=== PATIENT | female | born 1985 | race Asian ===

== ENCOUNTER 2016-10-12 18:50 | Inpatient (IN) | payer BC, OTHER ==
[2016-10-12] MEDS ORDERED: DEXTROSE 5%-LACTATED RINGERS 1,000 ML IV ONE (19:35)
[2016-10-12] MEDS ORDERED: TUBERCULIN PPD 5 TU/0.1ML SYRINGE (IN PATIENT USE ONLY) ID ONE (19:54)
[2016-10-12 20:25] LABS: BASOPHIL 0.8 % (0-2.0); EOSINOPHIL 0.3 % (0-4.5); MCH 26.5 pg (25.7-33.7); MCHC 32.4 g/dl (32.0-36.0); MEAN CELL VOLUME 81.8 fl (80-96); MEAN PLT VOLUME 8.7 fl (7.5-11.1); NEUTROPHILS 71.2 % (42.8-82.8); PLATELET COUNT 279 K/MM3 (134-434); RDW 27.8 % (11.6-15.6); WHITE BLOOD COUNT 10.9 K/mm3 (4.0-10.0)
[2016-10-12] MEDS ORDERED: DEXTROSE 5%-LACTATED RINGERS 1,000 ML IV SCH (20:35)
[2016-10-12 20:38] LABS: INR 0.95 (0.82-1.09); PROTHROMBIN TIME (PATIENT) 10.4 SEC (9.98-11.88)
[2016-10-12 20:43] LABS: ANION GAP 11 (8-16); CALCIUM 8.9 mg/dL (8.5-10.1); CO2 21 mmol/L (21-32); CREATININE 0.5 mg/dL (0.55-1.02); GLUCOSE,RANDOM 108 mg/dL (74-106)
[2016-10-12 21:11] VITALS: BMI 20.9
[2016-10-12 21:14] LABS: HIV 1 & 2 AB NEGATIVE; HIV 1 AGp24 NEGATIVE
[2016-10-12] MEDS ORDERED: BUTORPHANOL TARTRATE 1 MG/ML VIAL IVPB ONE (21:26)
--- NOTE | 2016-10-12 21:36 | HP ---
Past Medical History - Primary Care Physician PCP:: Pennie Martel - Admission Chief Complaint: Spontaneous rupture of memmbranes History of Present Illness: 30 yo EDC 10/13/16 ega 39.6 weeks with c/o srom at 630pm no bleeding or KNIGHT uncomplicated History Source: Patient - Past Medical History ...: 2 ...Para: 0 ...Term: 0 ...: 0 ...Spon : 1 ...Induced : 0 ...Multiple Gestation: 0 ...LMP: 01/08/16 ... Weeks Gestation by Dates: 39.5 ...EDC by Dates: 10/14/16 ...EDC by Sono: 10/13/16 Additional OB History: Missed ab - Past Surgical History Past Surgical History: Yes: None Hx Myomectomy: No Hx Transabdominal Cerclage: No Additional Surgical History: DC x 1 2015 - Smoking History Smoking history: Never smoked Have you smoked in the past 12 months: No - Alcohol/Substance Use Hx Alcohol Use: No History of Substance Use: reports: None - Social History Usual Living Arrangement: Yes: With Spouse History of Recent Travel: No Home Medications - Allergies Allergies/Adverse Reactions: Allergies Allergy/AdvReac Type Severity Reaction Status Date / Time tetracycline Allergy Severe Verified 11/12/15 11:14 ibuprofen [From Motrin] Allergy Intermediate Verified 11/12/15 11:14 - Home Medications Home Medications: Ambulatory Orders Iron 1 tab PO BID 10/12/16 Vitamins (Sjr) - 1 tab PO DAILY 10/12/16 Review of Systems - Review of Systems Constitutional: reports: No Symptoms Eyes: reports: No Symptoms HENT: reports: No Symptoms Neck: reports: No Symptoms Cardiovascular: reports: No Symptoms Respiratory: reports: No Symptoms Gastrointestinal: reports: Abdominal Pain Genitourinary: reports: No Symptoms Breasts: reports: No Symptoms Reported Musculoskeletal: reports: No Symptoms Integumentary: reports: No Symptoms Neurological: reports: No Symptoms Endocrine: reports: No Symptoms Hematology/Lymphatic: reports: No Symptoms Psychiatric: reports: No Symptoms Physical Exam - Maternity Vital Signs: Vital Signs Temperature 98.7 F 10/12/16 21:00 Pulse Rate 114 H 10/12/16 21:00 Respiratory Rate 18 10/12/16 21:00 Blood Pressure 118/73 10/12/16 21:00 O2 Sat by Pulse Oximetry (%) Constitutional: Yes: Well Nourished, No Distress HENT: Yes: WNL Neck: Yes: WNL Cardiovascular: Yes: WNL Lungs: Clear to auscultation Breast(s): Yes: WNL - Abdominal Exam/OB Fundal Height: 40 Number of Fetuses: Single Presentation: Vertex Contractions: Yes Regularity: Irritability Intensity: Mild/Mod Monitor Mode: External Category: I Accelerations: Non-Uniform Decelerations: None - Vaginal Exam/OB Vaginal Bleediing: No Dilatation (cm): 1 Effacement (%): 80 Amniotic Membrane Status: Ruptured Amniotic Fluid: Yes: Clear Presentation: Vertex/Position - Physical Exam Musculoskeletal: Yes: WNL Extremities: Yes: WNL Edema: No Psychiatric: Yes: WNL, Alert, Oriented - Labs Lab Results: CBC, BMP 10/12/16 19:50 10/12/16 19:50 Hemorrhage Risk Assessment - Risk Factors Risk Score: 0 Risk Level: Low Risk Problem List - Problems (1) Spontaneous rupture of membranes Code(s): [id number] - Assessment/Plan IUP at 39.5 weeks SROM GBS neg Hx of DC Plan Admit will observe Stadol as needed
[2016-10-12] MEDS: ELECTROLYTE-148 SOLN 1,000 ML IV SCH (21:50)
[2016-10-12 22:09] LABS: BASOPHIL 0.5 % (0-2.0); EOSINOPHIL 0.3 % (0-4.5); MCH 26.9 pg (25.7-33.7); MCHC 33.1 g/dl (32.0-36.0); MEAN CELL VOLUME 81.3 fl (80-96); MEAN PLT VOLUME 8.5 fl (7.5-11.1); NEUTROPHILS 68.4 % (42.8-82.8); PLATELET COUNT 291 K/MM3 (134-434); RDW 28.8 % (11.6-15.6); WHITE BLOOD COUNT 10.8 K/mm3 (4.0-10.0)
[2016-10-12 22:33] LABS: INR 0.91 (0.82-1.09)
[2016-10-12 22:36] LABS: ACTIVATED PTT 24.9 SECONDS (26.9-34.4)
[2016-10-12 22:50] LABS: ANION GAP 11 (8-16); CALCIUM 8.3 mg/dL (8.5-10.1); CO2 22 mmol/L (21-32); CREATININE 0.5 mg/dL (0.55-1.02); GLUCOSE,RANDOM 96 mg/dL (74-106)
[2016-10-13] MEDS ORDERED: OXYTOCIN 15 UNITS/ LR 250 ML 250 ML IVPB SCH (02:45)
[2016-10-13 07:10] LABS: BASOPHIL 1.1 % (0-2.0); EOSINOPHIL 0.3 % (0-4.5); MCH 26.4 pg (25.7-33.7); MCHC 32.1 g/dl (32.0-36.0); MEAN CELL VOLUME 82.1 fl (80-96); MEAN PLT VOLUME 8.4 fl (7.5-11.1); NEUTROPHILS 64.2 % (42.8-82.8); PLATELET COUNT 232 K/MM3 (134-434); RDW 29.5 % (11.6-15.6); WHITE BLOOD COUNT 11.2 K/mm3 (4.0-10.0)
--- NOTE | 2016-10-13 07:14 | HOSP ---
Subjective - Review of Symptoms Subjective: Called for evaluation of chest pain, dizziness, hallucinations post Stadol At bedside pt. is AA0X3 Physical: BP 121/82, rr 18 02 98% GEN: Nad, resting in bed HEENT: NCAT, PERRL CARD: RRR S1, S2 RESP: CTAB ABD: BSX4, NTD to palpation EXT: - C/C/E EKG A/P.) Chest Pain/Dizziness - Most likely medication reaction Avoid Stadol - Follow Troponin, CMP, UA and CBC - Will continue to follow pt. Physical Examination Vital Signs: Vital Signs Temperature 97.8 F 10/13/16 06:00 Pulse Rate 86 10/13/16 06:00 Respiratory Rate 20 10/13/16 06:00 Blood Pressure 130/69 10/13/16 06:00 O2 Sat by Pulse Oximetry (%)
--- NOTE | 2016-10-13 07:45 | PN ---
Ante-Partal Exam - Subjective Subjective: Pt with chest pain Vital Signs: Vital Signs Temperature 97.8 F 10/13/16 06:00 Pulse Rate 86 10/13/16 06:00 Respiratory Rate 20 10/13/16 06:00 Blood Pressure 130/69 10/13/16 06:00 O2 Sat by Pulse Oximetry (%) Bleeding: No Headache: No Visual changes: No Right upper quadrant pain: No - Contractions Contractions: Yes Regularity: Irregular Intensity: Mild Monitor Mode: External - Exam during Labor Heart Rate: 140 Variability: Moderate Heart Rate Location: [facility] Category: I Monitor Accelerations: Present Monitor Decelerations: None Exam: Vaginal Dilatation (cm): 1 cm Effacement (%): 90 Amniotic Membrane Status: Intact Presentation: Vertex - Intrapartum Hemorrhage Risk Risk Score: 0 Risk Level: Low Risk - Assessment/Plan Assessment/Plan: hospitialist consult called troponin drawn pt desire Section Plan will do CS if patient desire Notify peds and anesthesia
[2016-10-13] MEDS: ELECTROLYTE-148 SOLN 1,000 ML IV SCH (08:05)
[2016-10-13 09:32] LABS: ALBUMIN 2.5 g/dl (3.4-5.0); ANION GAP 10 (8-16); CALCIUM 8.3 mg/dL (8.5-10.1); CO2 22 mmol/L (21-32); GLUCOSE,RANDOM 94 mg/dL (74-106)
[2016-10-13 09:33] LABS: CREATININE 0.5 mg/dL (0.55-1.02); SGOT/AST 14 U/L (15-37); SGPT/ALT 13 U/L (12-78)
[2016-10-13 09:35] LABS: BILIRUBIN,TOTAL 0.2 mg/dL (0.2-1.0)
[2016-10-13 09:36] LABS: ALK PHOS 190 U/L (45-117)
[2016-10-13 09:38] LABS: TROPONIN I < 0.02 ng/ml (0.00-0.05)
[2016-10-13] MEDS ORDERED: ONDANSETRON 4 MG/2 ML VIAL IVPB ONE (11:00)
[2016-10-13 11:37] LABS: URINE APPEARANCE CLEAR; URINE BILIRUBIN NEGATIVE (NEGATIVE); URINE BLOOD 2+ (NEGATIVE); URINE COLOR STRAW; URINE GLUCOSE (UA) NEGATIVE (NEGATIVE); URINE KETONE NEGATIVE (NEGATIVE); URINE LEUK ESTERASE NEGATIVE (NEGATIVE); URINE NITRITE NEGATIVE (NEGATIVE); URINE PROTEIN NEGATIVE (NEGATIVE); URINE UROBILINOGEN NEGATIVE E.U./dl (0.2-1.0)
[2016-10-13 11:40] LABS: URINE RBC 12 /hpf (0-3); URINE WBC 4 /hpf (3-5)
--- NOTE | 2016-10-13 11:54 | HOSP ---
Physical Examination Vital Signs: Vital Signs Temperature 97.9 F 10/13/16 10:00 Pulse Rate 87 10/13/16 11:00 Respiratory Rate 20 10/13/16 11:00 Blood Pressure 120/87 10/13/16 11:00 O2 Sat by Pulse Oximetry (%) Labs: CBC, BMP 10/13/16 06:43 10/13/16 06:43 Hospitalist Encounter Assessment: Labs returned and patient's Troponins were negative . CMP had elevated Alk phos of 190. Patient still complains of a headache and is still anxious. PLAN: -Repeat Troponin with repeat EKG -Tylenol 650mg Q6H PRN for headache -Will follow up on labs Visit type - Emergency Visit Emergency Visit: Yes ED Registration Date: 10/12/16 Care time: The patient presented to the Emergency Department on the above date and was hospitalized for further evaluation of their emergent condition. - New Patient This patient is new to me today: Yes Date on this admission: 10/13/16 - Critical Care Critical Care patient: No
[2016-10-13] MEDS ORDERED: oxyCODONE HCL 5 MG TABLET PO PRN (14:48)
[2016-10-13] MEDS ORDERED: BENZOCAINE 20% 57 GM BOTTLE TP PRN (14:48)
[2016-10-13] MEDS ORDERED: BISACODYL 10 MG SUPP.RECT RC PRN (14:48)
[2016-10-13] MEDS ORDERED: WITCH HAZEL 50% (TUCKS) 40 PAD/JAR PAD TP PRN (14:48)
[2016-10-13] MEDS ORDERED: METHYLERGONOVINE MALEATE 0.2 MG/1 ML AMP IM PRN (14:48)
[2016-10-13] MEDS ORDERED: BENZOCAINE 28 GM HEMORRHOIDAL OINTMENT PR PRN (14:48)
--- NOTE | 2016-10-13 14:48 | PN ---
Ante-Partal Exam - Subjective Vital Signs: Vital Signs Temperature 97.9 F 10/13/16 13:00 Pulse Rate 89 10/13/16 13:00 Respiratory Rate 18 10/13/16 13:00 Blood Pressure 120/71 10/13/16 13:00 O2 Sat by Pulse Oximetry (%) Bleeding: No Headache: No Visual changes: No Right upper quadrant pain: No - Contractions Contractions: No - Exam during Labor Variability: Moderate Category: I Monitor Decelerations: None Exam: Vaginal Amniotic Membrane Status: Ruptured Presentation: Vertex - Assessment/Plan Assessment/Plan: Cat 1 desires elective CS Plan CS
--- NOTE | 2016-10-13 14:56 | OP ---
Operative Note - Note: Operative Date: 10/13/16 Pre-Operative Diagnosis: Elective . spontaneous rupture of membranes. IUp at 39 weeks Operation: Primary Low transverse Section Findings: Live female Post-Operative Diagnosis: Same as Pre-op Surgeon: Pennie Martel Operator Catalyst Concentration: Real Eduardo Anesthesia: Spinal Estimated Blood Loss (mls): 500 Operative Report Dictated: Yes
[2016-10-13] MEDS ORDERED: ONDANSETRON 4 MG/2 ML VIAL IVPB PRN (14:59)
[2016-10-13] MEDS ORDERED: D5W-LR W/ 20 UNITS OXYTOCIN 1,000 ML IV SCH (15:00)
--- NOTE | 2016-10-13 15:01 | OP ---
DATE OF OPERATION: 10/13/2016 PREOPERATIVE DIAGNOSIS: Elective section. POSTOPERATIVE DIAGNOSIS: Live female infant. OPERATION: Primary low-transverse section. SURGEON: Pennie Martel MD HOSPICE HOME HEALTH AIDE: KEESHA Pino ( unavailable) ANESTHESIA: Spinal. ANESTHESIOLOGIST: Moody Alcala DO DESCRIPTION OF PROCEDURE: The patient was taken to the operating room, placed in the supine position, prepped and draped in the usual sterile fashion. A time-out was performed in accordance with hospital regulation. A Pfannenstiel skin incision was made with the scalpel. Cautery was then used to go through the layers of the abdominal wall to the level of the fascia. The fascia was cut in the midline and cautery was then used to open the fascia in a smiling fashion. Wallace was then used to bluntly and sharply dissect the rectus muscle and fascia. The muscle was splint in the midline. The peritoneal cavity was then entered and carried upward and downward. A bladder retractor was then placed. The vesicouterine reflection was then entered. The bladder was bluntly dissected out of the operative field. A scalpel was then used to make a low transverse uterine incision. The incision was carried upward using bandage scissors. No fluid was seen within the uterus. A live female was delivered in OT position. Nose and mouth suction was performed. The shoulders were delivered without difficulty. The cord was clamped and cut. Cord blood was obtained. The placenta was manually extracted from the uterus. The uterus was exteriorized and cleaned with clean lap pads. The uterine incision was then closed using 0 Biosyn suture, the first layer continuous interlocking and the second layer imbricating the first layer. Hemostasis was achieved. The tube and ovaries were normal. The uterus was interiorized. The abdominal cavity was cleaned with clean lap pads. Abdominal sweep done prior to closure. The peritoneum was then closed using 0 Biosyn. The fascia was then closed using 0 Vicryl suture and the muscles approximated in the midline using 0 Biosyn suture. The subcutaneous was closed with interrupted 0 Biosyn. The skin was then closed using 3-0 Biosyn in subcuticular fashion. The wound was washed and dressed. The patient tolerated the procedure well. She was taken to the recovery room in stable condition. Estimated blood loss was 600 mL. Wound classification: Clean, uncontaminated. Sg [id number] MTDD
[2016-10-13 15:32] LABS: VENOUS PH 7.39 (7.32-7.42)
[2016-10-13 15:33] LABS: VENOUS BLOOD GAS HCO3 71.4 meq/L (19-25)
[2016-10-13] MEDS ORDERED: SENNOSIDES/DOCUSATE COMBO (SENNA PLUS) TABLET (UD) PO SCH (22:00)
[2016-10-13] MEDS: ACETAMINOPHEN 325 MG TABLET (FP) PO PRN (23:00)
[2016-10-14] MEDS: ACETAMINOPHEN 325 MG TABLET (FP) PO PRN ×3 (06:20→23:04)
[2016-10-14 08:15] LABS: BASOPHIL 0.5 % (0-2.0); EOSINOPHIL 0.2 % (0-4.5); MCH 26.5 pg (25.7-33.7); MCHC 32.1 g/dl (32.0-36.0); MEAN CELL VOLUME 82.8 fl (80-96); MEAN PLT VOLUME 8.2 fl (7.5-11.1); NEUTROPHILS 75.1 % (42.8-82.8); PLATELET COUNT 250 K/MM3 (134-434); RDW 29.2 % (11.6-15.6); WHITE BLOOD COUNT 12.9 K/mm3 (4.0-10.0)
--- NOTE | 2016-10-14 08:49 | PN ---
Post Progress Note - Subjective Subjective: Pt seen/evaluated and doing well. Having some incisional pain but otherwise feels well. Tolerating clears. Not yet ambulating. Wyatt catheter with clear yellow urine, no void yet. No flatus yet. VB minimal. NO CP/SOB/F/C/KNIGHT. Type of Delivery: Primary C/S Vital Signs: Vital Signs Temperature 98.2 F 10/14/16 06:00 Pulse Rate 94 H 10/14/16 06:00 Respiratory Rate 18 10/14/16 07:00 Blood Pressure 126/80 10/14/16 06:00 O2 Sat by Pulse Oximetry (%) 99 10/13/16 15:52 Uterus: Yes: Fundus Firm, Fundus below umbilicus Incision: Yes: Dressing dry and intact Abdomen/GI: Yes: Abdomen soft, Tender (appropriately tender post op), Tolerating PO (clears). No: Passing flatus Lochia: Yes: Rubra Lochia, amount: Small Extremities: Yes: Calves non-tender. No: Edema Perineum: Yes: Intact Activity: Ambulating - Labs Labs: CBC WBC 12.9 K/mm3 (4.0-10.0) H 10/14/16 07:15 RBC 3.60 M/mm3 (3.60-5.2) 10/14/16 07:15 Hgb 9.5 GM/dL (10.7-15.3) L 10/14/16 07:15 Hct 29.8 % (32.4-45.2) L 10/14/16 07:15 MCV 82.8 fl (80-96) 10/14/16 07:15 MCHC 32.1 g/dl (32.0-36.0) 10/14/16 07:15 RDW 29.2 % (11.6-15.6) H 10/14/16 07:15 Plt Count 250 K/MM3 (134-434) 10/14/16 07:15 MPV 8.2 fl (7.5-11.1) 10/14/16 07:15 Neutrophils % 75.1 % (42.8-82.8) 10/14/16 07:15 Lymphocytes % 20.6 % (8-40) D 10/14/16 07:15 Monocytes % 3.6 % (3.8-10.2) L 10/14/16 07:15 Eosinophils % 0.2 % (0-4.5) 10/14/16 07:15 Basophils % 0.5 % (0-2.0) 10/14/16 07:15 Problem List - Problems (1) delivery delivered Code(s): O82 - ENCOUNTER FOR DELIVERY WITHOUT INDICATION (2) Anemia Code(s): D64.9 - ANEMIA, UNSPECIFIED Assessment/Plan 30 y/o POD#1 s/p elective primary delivery, doing well - AFVSS - Hgb 9.5 this a.m., stable - encourage ambulation, d/c wyatt, advance diet as regular - routine care
[2016-10-14] MEDS ORDERED: DIPHTH,PERTUSS(ACELL),TET 0.5 ML DISP.SYRIN IM ONE (10:00)
--- NOTE | 2016-10-14 11:14 | EKG ---
Test Reason : Blood Pressure : / mmHG Vent. Rate : 080 BPM Atrial Rate : 080 BPM P-R Int : 150 ms QRS Dur : 076 ms QT Int : 416 ms P-R-T Axes : 000 128 159 degrees QTc Int : 479 ms NORMAL SINUS RHYTHM LATERAL INFARCT , AGE UNDETERMINED T WAVE ABNORMALITY, CONSIDER ANTERIOR ISCHEMIA ABNORMAL ECG NO PREVIOUS ECGS AVAILABLE Confirmed by MARY HORTON MD ([id number]) on 10/14/2016 11:14:24 AM Referred By: Confirmed By:MARY HORTON MD
[2016-10-14 11:42] LABS: ANISOCYTOSIS 3+; POLYCHROMASIA 2+
[2016-10-14] MEDS: oxyCODONE HCL 5 MG TABLET PO PRN ×2 (13:24→23:03)
--- NOTE | 2016-10-14 13:50 | PN ---
Progress Note (short form) - Note Progress Note: Anesthesiology POD#1 s/p C/S under spinal anesthesia. Pt. feels well, denies h/a or problems walking. Pain well controlled. VSS.
[2016-10-15] MEDS: oxyCODONE HCL 5 MG TABLET PO PRN ×2 (08:46→21:13)
[2016-10-15] MEDS: ACETAMINOPHEN 325 MG TABLET (FP) PO PRN ×2 (08:46→21:14)
--- NOTE | 2016-10-15 10:08 | PN ---
Progress Note, Physician History of Present Illness: SP SECTION DAY 2 SHE OFFERS NO COMPLAINTS - Current Medication List Current Medications: Active Medications Acetaminophen (Tylenol -) 650 mg PO Q6H PRN PRN Reason: HEADACHE Last Admin: 10/14/16 23:04 Dose: 650 mg Acetaminophen (Tylenol -) 650 mg PO Q4H PRN PRN Reason: FEVER OR PAIN Last Admin: 10/15/16 08:46 Dose: 650 mg Benzocaine (Americaine Ointment -) 1 applic [place] PRN PRN PRN Reason: PAIN Benzocaine (Americaine 20% [place] -) 1 spray TP PRN PRN PRN Reason: PAIN Bisacodyl (Dulcolax Suppository -) 10 mg RC PRN PRN PRN Reason: CONSTIPATION Methylergonovine Maleate (Methergine Injection -) 0.2 mg IM Q4H PRN PRN Reason: EXCESSIVE BLEEDING Oxycodone HCl (Roxicodone -) 5 mg PO Q4H PRN PRN Reason: PAIN Last Admin: 10/15/16 08:46 Dose: 5 mg Oxycodone HCl (Roxicodone -) 10 mg PO Q4H PRN PRN Reason: PAIN Witch Alecia/Glycerin (Tucks Pads -) 1 pad TP PRN PRN PRN Reason: PAIN - Objective Vital Signs: Vital Signs Temperature 98.4 F 10/15/16 08:30 Pulse Rate 71 10/15/16 08:30 Respiratory Rate 20 10/15/16 08:30 Blood Pressure 122/74 10/15/16 08:30 O2 Sat by Pulse Oximetry (%) 99 10/13/16 15:52 Constitutional: Yes: Well Nourished, No Distress Eyes: Yes: WNL, Occular Prosthesis HENT: Yes: WNL Neck: Yes: WNL, Supple Cardiovascular: Yes: WNL, Regular Rate and Rhythm Respiratory: Yes: WNL, Regular Gastrointestinal: Yes: WNL ...Rectal Exam: Yes: Deferred Genitourinary: Yes: WNL Breast(s): Yes: WNL Musculoskeletal: Yes: WNL Extremities: Yes: WNL Integumentary: Yes: WNL Wound/Incision: Yes: Clean/Dry, Well Approximated ...Motor Strength: WNL Psychiatric: Yes: Alert, Oriented Labs: CBC, BMP 10/14/16 07:15 10/13/16 06:43 INR, PTT INR 0.91 (0.82-1.09) 10/12/16 21:35 Assessment/Plan CONDITION IS STABLE ON 2ND POST OP DAY CONTINIE CURRENT CARE
[2016-10-15] MEDS ORDERED: ALBUTEROL SO4 6.7 GM HFA INHALER IH ONE (10:15)
--- NOTE | 2016-10-16 07:12 | PN ---
Progress Note (SOAP) - Subjective Chief Complaint: Pt doing well - Current Medications Current Medications: Active Medications Acetaminophen (Tylenol -) 650 mg PO Q6H PRN PRN Reason: HEADACHE Last Admin: 10/15/16 21:14 Dose: 650 mg Acetaminophen (Tylenol -) 650 mg PO Q4H PRN PRN Reason: FEVER OR PAIN Last Admin: 10/15/16 08:46 Dose: 650 mg Benzocaine (Americaine Ointment -) 1 applic [place] PRN PRN PRN Reason: PAIN Benzocaine (Americaine 20% [place] -) 1 spray TP PRN PRN PRN Reason: PAIN Bisacodyl (Dulcolax Suppository -) 10 mg RC PRN PRN PRN Reason: CONSTIPATION Methylergonovine Maleate (Methergine Injection -) 0.2 mg IM Q4H PRN PRN Reason: EXCESSIVE BLEEDING Oxycodone HCl (Roxicodone -) 5 mg PO Q4H PRN PRN Reason: PAIN Last Admin: 10/15/16 21:13 Dose: 5 mg Oxycodone HCl (Roxicodone -) 10 mg PO Q4H PRN PRN Reason: PAIN Witch Alecia/Glycerin (Tucks Pads -) 1 pad TP PRN PRN PRN Reason: PAIN - Objective Vital Signs: Vital Signs Temperature 98.9 F 10/15/16 21:39 Pulse Rate 100 H 10/15/16 21:39 Respiratory Rate 20 10/15/16 21:39 Blood Pressure 116/72 10/15/16 21:39 O2 Sat by Pulse Oximetry (%) 99 10/13/16 15:52 Constitutional: Yes: Well Nourished, No Distress Genitourinary: Yes: WNL ....Post : Yes: Uterus firm, Uterus non-tender Breast(s): Yes: WNL Musculoskeletal: Yes: WNL Extremities: Yes: WNL Edema: No Wound/Incision: Yes: Steri Strips, Open to air Labs Lab Results: CBC, BMP 10/14/16 07:15 10/13/16 06:43 Problem List - Problems (1) Spontaneous rupture of membranes Code(s): [id number] -
[2016-10-16 09:47] VITALS: BP 120/76; PULSE 70; TEMP 99
[2016-10-16] MEDS: oxyCODONE HCL 5 MG TABLET PO PRN (10:23)
[2016-10-16] MEDS: ACETAMINOPHEN 325 MG TABLET (FP) PO PRN (10:24)
--- NOTE | 2016-10-18 10:55 | PATH ---
Surgical Pathology Report Patient Name: KANG CUENCA [facility]. Rec. #: [id number] /Age/Gender: 1985 (Age: 30) / F Account: [id number] Location: [facility] OBS/HELP DESK MANAGER Taken: 10/13/2016 Received: 10/14/2016 Reported: 10/18/2016 Physicians: Pennie Martel M.D. Specimen(s) Received PLACENTA Clinical History , SAB x1, patient anemic 9.2/29.3 C/section Final Diagnosis PLACENTA, DELIVERY: FOCALLY DISRUPTED THIRD TRIMESTER PLACENTA WITH MODERATE PREVILLOUS, PERIVILLOUS, AND PRECHORIONIC FIBRIN DEPOSITION, THREE VESSEL UMBILICAL CORD, AND PLACENTAL MEMBRANES WITH AMNION HYPERPLASIA AND FOCAL EARLY ACUTE CHORIOAMNIONITIS. Electronically Signed Santo Odom M.D. Gross Description The specimen is received fresh, labeled "placenta" and is a 447 gram, 19.5 x 16.5 x 2.2 cm placenta with attached membranes and umbilical cord. The attached membranes are gold, translucent with focal opacities and insert marginally. The umbilical cord measures 27 cm in length and averages 1.1 cm in diameter. The cord inserts eccentrically, 4 cm to the nearest margin. No true knots or strictures are identified. Cut surface of the umbilical cord reveals 3 vessels. The surface is nicole-blue with fibrin deposition and appropriate caliber vessels. The maternal surface is red-brown with focal defects. Sectioning reveals red-brown, spongy parenchyma. No focal lesions are identified. Plant Breeder Scientist sections are submitted in three cassettes as follows: 1- membrane rolls and umbilical cord; 2-3- full thickness sections of placenta. 10/15/2016 [facility]/15/2016
== END 2016-10-16 12:10 | disposition home or self-care (01) | DRG 766 ==
LOC: JDEL 18:50 → JLDR 19:20 → J3W 10-13 16:25
PROVIDERS: ADMIT Obstetrics & Gynecology; ATTEND Obstetrics & Gynecology
PROC: 10D00Z1 Extraction of Products of Conception, Low, Open Approach (ICD-10-PCS; principal; 2016-10-13)
DX: O34.211 Maternal care for low transverse scar from previous cesarean delivery (principal); O99.02 Anemia complicating childbirth; D64.89 Other specified anemias; O75.89 Other specified complications of labor and delivery; R07.89 Other chest pain; Z3A.39 39 weeks gestation of pregnancy; Z37.0 Single live birth
CPT/HCPCS: 36415; 80048; 80053; 81003; 81015; 82550; 82803; 84484; 85025; 85610; 85730; 86593; 86762; 86850; 86900; 86901; 87340; 87389; 88307-TC; 90715; 93005; 93010

== ENCOUNTER 2018-12-15 05:06 | Emergency (ER) | payer BC ==
[2018-12-15 05:19] VITALS: BMI 23.6
--- NOTE | 2018-12-15 05:40 | PDOC ---
History of Present Illness <Gopal Harkinsson - Last Filed: 12/15/18 06:47> - History of Present Illness Initial Comments: Ms. Bullock is a 33 y/o female with PMH of PCOS, presenting today with left sided chest pain. Reports that she started having chest pain around 11pm last night which is worsening. Describes the pain as sharp and radiating to the left scapula. Reports palpitations. Reports that pain is worse when laying flat and made better by leaning forward. Reports shortness of breath at rest. No pleuritic chest pain. Has not been sick recently. No fever, no cough. Reports nausea but no vomiting. PMH: PCOS SocHX: FamHX: dad and grandfather had FL in Meds: metformin <Junior Stoner - Last Filed: 12/15/18 19:16> - General Chief Complaint: Chest Pain Stated Complaint: CHEST DISCOMFORT Time Seen by Provider: 12/15/18 05:15 Past History <Christofer Harkins - Last Filed: 12/15/18 06:47> - Past Medical History Asthma: No Cancer: No Cardiac Disorders: No COPD: No Diabetes: No HTN: No Seizures: No Thyroid Disease: No - Reproductive History (#): 1 Para: 0 - Suicide/Smoking/Psychosocial Hx Smoking History: Never smoked Have you smoked in the past 12 months: No Hx Alcohol Use: No Drug/Substance Use Hx: No Substance Use Type: None Hx Substance Use Treatment: No <Junior Stoner - Last Filed: 12/15/18 19:16> - Past Medical History Allergies/Adverse Reactions: Allergies Allergy/AdvReac Type Severity Reaction Status Date / Time tetracycline Allergy Severe Verified 11/12/15 11:14 ibuprofen [From Motrin] Allergy Intermediate Verified 11/12/15 11:14 butorphanol [From Stadol] Allergy Verified 12/15/18 05:39 doxycycline Allergy Verified 12/15/18 05:39 Home Medications: Ambulatory Orders Metformin HCl [Metformin HCl ER] 500 mg PO DAILY 12/15/18 Review of Systems - Review of Systems Comments:: ROS GENERAL/CONSTITUTIONAL: No fever or chills. No weakness._ HEAD, EYES, EARS, NOSE AND THROAT: No change in vision. No change in hearing. No sore throat._ CARDIOVASCULAR: Reports chest pain and shortness of breath. RESPIRATORY: Denies cough, hemoptysis_ GASTROINTESTINAL: No nausea, vomiting, diarrhea or constipation._ GENITOURINARY: No dysuria, frequency, or change in urination._ MUSCULOSKELETAL: No joint or muscle swelling or pain. No neck or back pain._ SKIN: No rash_ NEUROLOGIC: No headache, vertigo, loss of consciousness, or change in strength/ sensation._ ENDOCRINE: No increased thirst. No abnormal weight change_ HEMATOLOGIC/LYMPHATIC: No anemia, easy bleeding, or history of blood clots._ ALLERGIC/IMMUNOLOGIC: No hives or skin allergy._ <Junior Stoner - Last Filed: 12/15/18 19:16> *Physical Exam - Vital Signs Last Vital Signs Temp Pulse Resp BP Pulse Ox 98 F 82 20 128/81 100 12/15/18 05:10 12/15/18 05:10 12/15/18 05:10 12/15/18 05:10 12/15/18 05:10 <Christofer Harkins - Last Filed: 12/15/18 06:47> - Vital Signs Last Vital Signs Temp Pulse Resp BP Pulse Ox 98 F 82 20 128/81 100 12/15/18 05:10 12/15/18 05:10 12/15/18 05:10 12/15/18 05:10 12/15/18 05:10 - Physical Exam Comments: GENERAL: Awake, alert, and oriented to person/place/time, in no acute distress_ HEAD: No signs of trauma, normocephalic, atraumatic _ EYES: PERRLA, EOMI, sclera anicteric, conjunctiva clear_ ENT: Hearing grossly normal, nares patent, oropharynx clear without exudates. No uvular deviation. Moist mucosa_ NECK: Normal ROM, supple, no lymphadenopathy, JVD, or masses_ LUNGS: No distress, speaks in full sentences, clear to auscultation bilaterally _ HEART: Regular rate and rhythm, normal S1 and S2, no murmurs appreciated, peripheral pulses normal and equal bilaterally._ CHEST: no TTP over left chest. ABDOMEN: Soft, nontender, normoactive bowel sounds. No guarding, no rebound. No masses_ EXTREMITIES: Normal inspection, Normal range of motion, no edema. No clubbing or cyanosis_ NEUROLOGICAL: Cranial nerves II through XII grossly intact. Normal speech, normal gait, no focal sensorimotor deficits _ SKIN: Warm, Dry, normal turgor, no rashes or lesions noted_ <Junior Stoner - Last Filed: 12/15/18 19:16> Heart Score/ECG Review - History History: Moderately suspicious - Electrocardiogram EKG: Normal - Age Age: </= 46 - Risk Factors Risk Factors Heart Score: Yes Positive family hx of cardiac disease Based on the list above the patient has:: 1-2 risk factors - Troponin Troponin: </= normal limit - Score Heart Score - Total: 2 <Junior Stoner - Last Filed: 12/15/18 19:16> ED Treatment Course - LABORATORY CBC & Chemistry Diagram: 12/15/18 05:50 12/15/18 05:50 - ADDITIONAL ORDERS Additional order review: Laboratory Results 12/15/18 12/15/18 12/15/18 06:04 06:04 06:04 PT with INR INR Sodium Potassium Chloride Carbon Dioxide Anion Gap BUN Creatinine Est GFR (CKD-EPI)AfAm Est GFR (CKD-EPI)NonAf Random Glucose Calcium Total Bilirubin AST ALT Alkaline Phosphatase Troponin I Total Protein Albumin TSH Urine Color Yellow Urine Appearance Error Urine pH 6.0 Ur Specific [place] 1.005 L Urine Protein Negative Urine Glucose (UA) Negative Urine Ketones Negative Urine Blood 1+ H Urine Nitrite Negative Urine Bilirubin Negative Urine Urobilinogen 0.2 Ur Leukocyte Esterase Negative Urine WBC (Auto) 0 Urine RBC (Auto) 4 Urine Casts (Auto) 1 U Epithel Cells (Auto) 0.8 Urine Bacteria (Auto) 14.2 Urine HCG, Qual Negative Opiates Screen Negative Methadone Screen Negative Barbiturate Screen Negative Phencyclidine Screen Negative Ur Amphetamines Screen Negative MDMA (Ecstasy) Screen Negative Benzodiazepines Screen Negative Cocaine Screen Negative U Marijuana (THC) Screen Negative 12/15/18 12/15/18 12/15/18 05:50 05:50 05:50 PT with INR Cancelled INR Cancelled Sodium Potassium Chloride Carbon Dioxide Anion Gap BUN Creatinine Est GFR (CKD-EPI)AfAm Est GFR (CKD-EPI)NonAf Random Glucose Calcium Total Bilirubin AST ALT Alkaline Phosphatase Troponin I Cancelled Total Protein Albumin TSH 5.41 H Urine Color Urine Appearance Urine pH Ur Specific [place] Urine Protein Urine Glucose (UA) Urine Ketones Urine Blood Urine Nitrite Urine Bilirubin Urine Urobilinogen Ur Leukocyte Esterase Urine WBC (Auto) Urine RBC (Auto) Urine Casts (Auto) U Epithel Cells (Auto) Urine Bacteria (Auto) Urine HCG, Qual Opiates Screen Methadone Screen Barbiturate Screen Phencyclidine Screen Ur Amphetamines Screen MDMA (Ecstasy) Screen Benzodiazepines Screen Cocaine Screen U Marijuana (THC) Screen 12/15/18 05:50 PT with INR INR Sodium Cancelled Potassium Cancelled Chloride Cancelled Carbon Dioxide Cancelled Anion Gap Cancelled BUN Cancelled Creatinine Cancelled Est GFR (CKD-EPI)AfAm Cancelled Est GFR (CKD-EPI)NonAf Cancelled Random Glucose Cancelled Calcium Cancelled Total Bilirubin Cancelled AST Cancelled ALT Cancelled Alkaline Phosphatase Cancelled Troponin I Total Protein Cancelled Albumin Cancelled TSH Urine Color Urine Appearance Urine pH Ur Specific [place] Urine Protein Urine Glucose (UA) Urine Ketones Urine Blood Urine Nitrite Urine Bilirubin Urine Urobilinogen Ur Leukocyte Esterase Urine WBC (Auto) Urine RBC (Auto) Urine Casts (Auto) U Epithel Cells (Auto) Urine Bacteria (Auto) Urine HCG, Qual Opiates Screen Methadone Screen Barbiturate Screen Phencyclidine Screen Ur Amphetamines Screen MDMA (Ecstasy) Screen Benzodiazepines Screen Cocaine Screen U Marijuana (THC) Screen 12/15/18 05:50 RBC Cancelled MCV Cancelled MCHC Cancelled RDW Cancelled MPV Cancelled Neutrophils % Cancelled Lymphocytes % Cancelled Monocytes % Cancelled Eosinophils % Cancelled Basophils % Cancelled <Christofer Harkins - Last Filed: 12/15/18 06:47> - LABORATORY CBC & Chemistry Diagram: 12/15/18 06:20 12/15/18 06:20 - RADIOLOGY Radiology Studies Ordered: Category Date Time Status CHEST PA & LAT [RAD] Stat Radiology 12/15/18 05:33 Ordered <Junior Stoner - Last Filed: 12/15/18 19:16> Medical Decision Making - Medical Decision Making 33F with hx of PCOS and FamHx of FL in late 30's presenting with left side chest pain radiating to left scapula that started around 11pm. Associated with SOB at rest. Plan to obtain CBC, CMP, trop, TSH, coags, EKG, CXR, UA. Given pt's allergy to ibuprofen, will not give aspirin. 12/15/18 05:50 EKG shows NSR 74 bpm, no axis deviation, no ST elevation/depression, QTc 461 ms. 12/15/18 07:00 Pt signed out to Dr. Cedillo and Dr. Cowart. <Junior Stoner - Last Filed: 12/15/18 19:16> *DC/Admit/Observation/Transfer <Christofer Harkins - Last Filed: 12/15/18 06:47> <Junior Stoner - Last Filed: 12/15/18 19:16> Diagnosis at time of Disposition: Chest pain Qualifiers: Chest pain type: unspecified Qualified Code(s): R07.9 - Chest pain, unspecified - Discharge Dispostion Disposition: HOME Condition at time of disposition: Stable - Referrals Referrals: Zhao Mota MD [Primary Care Provider] - - Patient Instructions Printed Discharge Instructions: DI for Atypical Chest Pain Additional Instructions: Today you were evaluated for chest pain. We did some blood tests, got an X-ray of your chest, and performed an EKG to check for a heart attack or any other heart disease, and you are not having a heart attack today. Please follow-up with your primary doctor in the next 3 days if possible, as you still need further follow-up to evaluate your chest pain over time to check if you may have other heart-related problems that were not detected today. If you continue to have persistent chest pain, nausea, vomiting, shoulder pain, abdominal pain, shortness of breath, lose consciousness, have palpitations, or have any other new or concerning symptoms, please return to the closest emergency room. - Post Discharge Activity Forms/Work/School Notes: Back to Work, Parent(s) Back to Work Note
--- NOTE | 2018-12-15 05:59 | PDOC ---
Attending Attestation - Resident Resident Name: Junior Stoner - ED Attending Attestation I have performed the following: I have examined & evaluated the patient, The case was reviewed & discussed with the resident, I agree w/resident's findings & plan, Exceptions are as noted - HPI HPI: 12/15/18 07:10 33F pmh PCOS here with CP since last night. Px is sharp, central chest, radiating to shoulder a/w dyspnea, palpitations. - Physicial Exam PE: 12/15/18 07:12 Agree with exam as documented by resident - Medical Decision Making 12/15/18 07:12 33F with CP a/w dyspnea, PERC neg endorses +family hx of CAD in father and grandfather both presenting in their 30 's f/u labs, trend troponin HEART early discharge pathway score 3, low risk Moderately suspicious history EKG with old twi 33F +risk factors in family hx initial trop negative will follow up repeat troponin, if negative then reasonable for early discharge with out patient follow up pt signed out to day team
[2018-12-15 06:16] LABS: EPI CELLS 0.8 /HPF (0-5/HPF); HYALINE CASTS 1 /lpf (0-8); URINE APPEARANCE Error; URINE BACTERIA 14.2 /hpf (NEGATIVE); URINE BILIRUBIN NEGATIVE (NEGATIVE); URINE COLOR YELLOW; URINE GLUCOSE (UA) NEGATIVE (NEGATIVE); URINE KETONE NEGATIVE (NEGATIVE); URINE LEUK ESTERASE NEGATIVE (NEGATIVE); URINE NITRITE NEGATIVE (NEGATIVE); URINE PROTEIN NEGATIVE (NEGATIVE); URINE RBC 4 /hpf (0-4); URINE UROBILINOGEN 0.2 mg/dL (0.2-1.0); URINE WBC 0 /hpf (0-5)
[2018-12-15 06:23] LABS: COCAINE, UR NEGATIVE ng/ml (CUTOFF=300); METHADONE, UR NEGATIVE ng/ml (CUTOFF=300); OPIATES, URI NEGATIVE ng/ml (CUTOFF=300); PHENCYCLIDINE,URINE NEGATIVE ng/ml (CUTOFF=25); URINE AMPHETAMINES NEGATIVE ng/ml (CUTOFF=500); URINE BARBITURATES NEGATIVE ng/ml (CUTOFF=200); URINE BENZODIAZEPINES NEGATIVE ng/ml (CUTOFF=200)
[2018-12-15 06:48] LABS: BASO % 0.6 % (0-2.0); EOS % 1.1 % (0-4.5); HEMATOCRIT 36.1 % (32.4-45.2); HEMOGLOBIN 12.3 GM/dL (10.7-15.3); LYMPH % 46.9 % (8-40); MCHC 33.9 g/dl (32.0-36.0); MEAN CELL VOLUME 85.5 fl (80-96); MEAN PLT VOLUME 9.2 fl (7.5-11.1); MONO % 6.5 % (3.8-10.2); NEUT % 44.9 % (42.8-82.8); PLATELET COUNT 237 K/MM3 (134-434); RBC 4.22 M/mm3 (3.60-5.2); RDW 14.6 % (11.6-15.6); WHITE BLOOD COUNT 7.9 K/mm3 (4.0-10.0)
[2018-12-15 07:13] LABS: ALBUMIN 3.8 g/dl (3.4-5.0); BILIRUBIN,TOTAL 0.2 mg/dL (0.2-1); BLOOD UREA NITROGEN 9.9 mg/dL (7-18); CALCIUM 8.6 mg/dL (8.5-10.1); CREATININE 0.6 mg/dL (0.55-1.3); POTASSIUM 4.1 mmol/L (3.5-5.1); TOT PROT 7.1 g/dl (6.4-8.2)
--- NOTE | 2018-12-15 07:19 | PDOC ---
*Physical Exam - Vital Signs Last Vital Signs Temp Pulse Resp BP Pulse Ox 98 F 70 18 104/72 100 12/15/18 05:10 12/15/18 07:12 12/15/18 07:12 12/15/18 07:12 12/15/18 07:12 - Physical Exam General Appearance: Yes: Nourished, Appropriately Dressed. No: Apparent Distress HEENT: positive: EOMI, Normal Voice, Symmetrical. negative: Scleral Icterus (R) , Scleral Icterus (L) Neck: positive: Trachea midline, Supple Respiratory/Chest: positive: Lungs Clear, Normal Breath Sounds Cardiovascular: positive: Regular Rhythm, Regular Rate Gastrointestinal/Abdominal: positive: Soft Musculoskeletal: positive: Normal Inspection Extremity: positive: Normal Inspection, Normal Range of Motion Integumentary: positive: Normal Color, Dry, Warm Neurologic: positive: Fully Oriented, Alert, Normal Mood/Affect, Normal Response ED Treatment Course - LABORATORY CBC & Chemistry Diagram: 12/15/18 06:20 12/15/18 06:20 - ADDITIONAL ORDERS Additional order review: Laboratory Results 12/15/18 12/15/18 12/15/18 06:20 06:20 06:20 PT with INR 11.80 INR 1.00 Sodium 141 Potassium 4.1 Chloride 109 H Carbon Dioxide 24 Anion Gap 8 BUN 9.9 Creatinine 0.6 Est GFR (CKD-EPI)AfAm 139.78 Est GFR (CKD-EPI)NonAf 120.61 Random Glucose 96 Calcium 8.6 Total Bilirubin 0.2 AST 46 H ALT 59 Alkaline Phosphatase 92 Creatine Kinase 68 Troponin I < 0.02 Total Protein 7.1 Albumin 3.8 TSH Urine Color Urine Appearance Urine pH Ur Specific [place] Urine Protein Urine Glucose (UA) Urine Ketones Urine Blood Urine Nitrite Urine Bilirubin Urine Urobilinogen Ur Leukocyte Esterase Urine WBC (Auto) Urine RBC (Auto) Urine Casts (Auto) U Epithel Cells (Auto) Urine Bacteria (Auto) Urine HCG, Qual Opiates Screen Methadone Screen Barbiturate Screen Phencyclidine Screen Ur Amphetamines Screen MDMA (Ecstasy) Screen Benzodiazepines Screen Cocaine Screen U Marijuana (THC) Screen 12/15/18 12/15/18 12/15/18 06:04 06:04 06:04 PT with INR INR Sodium Potassium Chloride Carbon Dioxide Anion Gap BUN Creatinine Est GFR (CKD-EPI)AfAm Est GFR (CKD-EPI)NonAf Random Glucose Calcium Total Bilirubin AST ALT Alkaline Phosphatase Creatine Kinase Troponin I Total Protein Albumin TSH Urine Color Yellow Urine Appearance Error Urine pH 6.0 Ur Specific [place] 1.005 L Urine Protein Negative Urine Glucose (UA) Negative Urine Ketones Negative Urine Blood 1+ H Urine Nitrite Negative Urine Bilirubin Negative Urine Urobilinogen 0.2 Ur Leukocyte Esterase Negative Urine WBC (Auto) 0 Urine RBC (Auto) 4 Urine Casts (Auto) 1 U Epithel Cells (Auto) 0.8 Urine Bacteria (Auto) 14.2 Urine HCG, Qual Negative Opiates Screen Negative Methadone Screen Negative Barbiturate Screen Negative Phencyclidine Screen Negative Ur Amphetamines Screen Negative MDMA (Ecstasy) Screen Negative Benzodiazepines Screen Negative Cocaine Screen Negative U Marijuana (THC) Screen Negative 12/15/18 12/15/18 12/15/18 05:50 05:50 05:50 PT with INR Cancelled INR Cancelled Sodium Potassium Chloride Carbon Dioxide Anion Gap BUN Creatinine Est GFR (CKD-EPI)AfAm Est GFR (CKD-EPI)NonAf Random Glucose Calcium Total Bilirubin AST ALT Alkaline Phosphatase Creatine Kinase Troponin I Cancelled Total Protein Albumin TSH 5.41 H Urine Color Urine Appearance Urine pH Ur Specific [place] Urine Protein Urine Glucose (UA) Urine Ketones Urine Blood Urine Nitrite Urine Bilirubin Urine Urobilinogen Ur Leukocyte Esterase Urine WBC (Auto) Urine RBC (Auto) Urine Casts (Auto) U Epithel Cells (Auto) Urine Bacteria (Auto) Urine HCG, Qual Opiates Screen Methadone Screen Barbiturate Screen Phencyclidine Screen Ur Amphetamines Screen MDMA (Ecstasy) Screen Benzodiazepines Screen Cocaine Screen U Marijuana (THC) Screen 12/15/18 05:50 PT with INR INR Sodium Cancelled Potassium Cancelled Chloride Cancelled Carbon Dioxide Cancelled Anion Gap Cancelled BUN Cancelled Creatinine Cancelled Est GFR (CKD-EPI)AfAm Cancelled Est GFR (CKD-EPI)NonAf Cancelled Random Glucose Cancelled Calcium Cancelled Total Bilirubin Cancelled AST Cancelled ALT Cancelled Alkaline Phosphatase Cancelled Creatine Kinase Troponin I Total Protein Cancelled Albumin Cancelled TSH Urine Color Urine Appearance Urine pH Ur Specific [place] Urine Protein Urine Glucose (UA) Urine Ketones Urine Blood Urine Nitrite Urine Bilirubin Urine Urobilinogen Ur Leukocyte Esterase Urine WBC (Auto) Urine RBC (Auto) Urine Casts (Auto) U Epithel Cells (Auto) Urine Bacteria (Auto) Urine HCG, Qual Opiates Screen Methadone Screen Barbiturate Screen Phencyclidine Screen Ur Amphetamines Screen MDMA (Ecstasy) Screen Benzodiazepines Screen Cocaine Screen U Marijuana (THC) Screen 12/15/18 05:50 RBC Cancelled MCV Cancelled MCHC Cancelled RDW Cancelled MPV Cancelled Neutrophils % Cancelled Lymphocytes % Cancelled Monocytes % Cancelled Eosinophils % Cancelled Basophils % Cancelled Medical Decision Making - Medical Decision Making 12/15/18 07:16 Received sign-out from Dr. Stoner. Patient is a 33F with PCOS presenting with L-sided chest pain. Got cardiac profile, CBC, CMP, Utox, Upreg, etc. 1st labs hemolyzed, repeats sent and pending. 1st trop 6:30AM, will get repeat trop at 9:30AM for 3hr. Low threshold to discharge home if 2nd trop negative. ASA contraindicated 2/2 NSAID allergy. 12/15/18 10:19 3 hour troponin is negative. Will discharge home as discussed. *DC/Admit/Observation/Transfer Diagnosis at time of Disposition: Chest pain Qualifiers: Chest pain type: unspecified Qualified Code(s): R07.9 - Chest pain, unspecified - Discharge Dispostion Disposition: HOME Condition at time of disposition: Stable Decision to Admit order: No - Referrals Referrals: Zhao Mota MD [Primary Care Provider] - - Patient Instructions Printed Discharge Instructions: DI for Atypical Chest Pain Additional Instructions: Today you were evaluated for chest pain. We did some blood tests, got an X-ray of your chest, and performed an EKG to check for a heart attack or any other heart disease, and you are not having a heart attack today. Please follow-up with your primary doctor in the next 3 days if possible, as you still need further follow-up to evaluate your chest pain over time to check if you may have other heart-related problems that were not detected today. If you continue to have persistent chest pain, nausea, vomiting, shoulder pain, abdominal pain, shortness of breath, lose consciousness, have palpitations, or have any other new or concerning symptoms, please return to the closest emergency room. - Post Discharge Activity Forms/Work/School Notes: Parent(s) Back to Work Note, Back to Work
[2018-12-15 09:12] LABS: INR 1.01 (0.83-1.09); PROTHROMBIN TIME (PATIENT) 11.9 SEC (9.7-13.0)
[2018-12-15 10:19] VITALS: BP 104/62; PULSE 81; TEMP 98.6
--- NOTE | 2018-12-15 11:41 | EKG ---
Test Reason : Blood Pressure : / mmHG Vent. Rate : 074 BPM Atrial Rate : 074 BPM P-R Int : 162 ms QRS Dur : 070 ms QT Int : 416 ms P-R-T Axes : 060 055 030 degrees QTc Int : 461 ms NORMAL SINUS RHYTHM NORMAL ECG Confirmed by MENG NOLEN MD ([id number]) on 12/15/2018 11:41:16 AM Referred By: Confirmed By:MENG NOLEN MD
== END 2018-12-15 10:37 | disposition home or self-care (01) ==
LOC: JER 05:06
DX: R07.9 Chest pain, unspecified (principal); E28.2 Polycystic ovarian syndrome
CPT/HCPCS: 36415; 71046-TC-FY; 80053; 80307; 81003; 82550; 84443; 84484; 84703; 85025; 85610; 93005; 93010; 99285-25

== ENCOUNTER 2021-11-29 01:50 | Inpatient (IN) | payer BC, OTHER ==
[2021-11-29] MEDS: ELECTROLYTE-148 SOLN 1,000 ML IV SCH (02:00)
[2021-11-29 03:33] LABS: BASO % 0.7 % (0-2.0); EOS % 0.7 % (0-4.5); HEMATOCRIT 33.2 % (32.4-45.2); LYMPH % 30.8 % (8-40); MCH 31.7 pg (25.7-33.7); MCHC 36.2 g/dl (32.0-36.0); MEAN CELL VOLUME 87.7 fl (80-96); NEUT % 61.8 % (42.8-82.8); PLATELET COUNT 244 10^3/uL (134-434); RBC 3.78 M/mm3 (3.60-5.2); RDW 16.8 % (11.6-15.6); WHITE BLOOD COUNT 10.2 K/mm3 (4.0-10.0)
[2021-11-29 03:44] VITALS: BMI 26.6
[2021-11-29 03:55] LABS: CALCIUM 8.8 mg/dL (8.5-10.1)
[2021-11-29 03:56] LABS: BLOOD UREA NITROGEN 4.8 mg/dL (7-18)
[2021-11-29 03:59] LABS: CREATININE 0.4 mg/dL (0.55-1.3)
[2021-11-29] MEDS ORDERED: CITRIC ACID/SODIUM CITRATE 30 ML UNIT-DOSE CUP PO ONE (04:04)
[2021-11-29 04:05] LABS: INR 0.94 (0.83-1.09); PROTHROMBIN TIME (PATIENT) 10.8 SEC (9.7-13.0)
[2021-11-29 04:08] LABS: ACTIVATED PTT 24.8 SECONDS (25.2-36.5)
[2021-11-29] MEDS ORDERED: CEFAZOLIN SODIUM 2 GM VIAL ONE (04:09)
[2021-11-29] MEDS ORDERED: METHYLERGONOVINE MALEATE 0.2 MG/1 ML AMP IM PRN (04:09)
[2021-11-29] MEDS ORDERED: IBUPROFEN 600 MG TABLET (FP) PO PRN ×2 (04:09→04:30)
[2021-11-29] MEDS ORDERED: ceFAZolin 2 GRAM PREMIX BAG IVPB ONE (04:15)
[2021-11-29] MEDS ORDERED: ONDANSETRON 4 MG/2 ML VIAL ONE ×3 (04:33→05:56)
[2021-11-29] MEDS ORDERED: morphine SULFATE/PF 1 MG/2 ML (2cc Syringe - QUVA) ONE (04:33)
[2021-11-29] MEDS ORDERED: OXYTOCIN 30 UNITS in 0.9% NS 30 UNIT/500 ML INFUS.BAG IVPB ONE (04:42)
[2021-11-29] MEDS ORDERED: CEFAZOLIN SODIUM 2 GM in DEXTROSE 5%-WATER - 50 ML IVPB ONE (04:45)
[2021-11-29] MEDS ORDERED: DEXAMETHASONE SOD PHOSPHATE 4 MG/1 ML VIAL ONE (05:56)
[2021-11-29 06:19] LABS: CORD HCO3 24.1 mmHg (20-29); CORD PCO2 51.8 mmHg (30-78); CORD pH 7.285 (7.14-7.44)
[2021-11-29] MEDS ORDERED: MIDAZOLAM HCL 2 MG/2 ML SINGLE DOSE VIAL ONE (06:21)
[2021-11-29] MEDS ORDERED: METOCLOPRAMIDE HCL INJECTION 10 MG/2 ML VIAL ONE ×2 (06:21→06:22)
[2021-11-29 06:22] LABS: CORD BASE EXCESS -3.4 mmol/L (0-2); CORD PCO2 40.8 mmHg (30-78); CORD pH 7.349 (7.14-7.44)
[2021-11-29] MEDS ORDERED: OXYTOCIN 20 UNITS in 0.9% NS 20 UNIT/1,000 ML INFUS.BAG IV ONE (07:08)
[2021-11-29] MEDS: OXYTOCIN 20 UNITS in 0.9% NS 20 UNIT/1,000 ML INFUS.BAG IV SCH ×2 (07:10→16:30)
[2021-11-29] MEDS ORDERED: ONDANSETRON 4 MG/2 ML VIAL IVPUSH PRN (07:14)
[2021-11-29] MEDS: CEFAZOLIN 1 GM in DEXTROSE 5%-WATER - 1 GM/50 ML IVPB IVPB SCH ×2 (09:10→18:16)
[2021-11-29] MEDS ORDERED: ENOXAPARIN NA (PORCINE) 40 MG/0.4 ML DISP.SYRIN SQ SCH (10:00)
[2021-11-29] MEDS ORDERED: oxyCODONE HCL 5 MG TABLET PO PRN (16:09)
[2021-11-29] MEDS: ENOXAPARIN NA (PORCINE) 40 MG/0.4 ML DISP.SYRIN SQ SCH (18:16)
[2021-11-29] MEDS: ACETAMINOPHEN 1000 MG/100 ML BAG IVPB PRN (19:21)
[2021-11-30] MEDS: CEFAZOLIN 1 GM in DEXTROSE 5%-WATER - 1 GM/50 ML IVPB IVPB SCH (02:09)
[2021-11-30] MEDS: SIMETHICONE 80 MG TAB.CHEW (FP) PO PRN ×2 (02:10→20:18)
[2021-11-30] MEDS ORDERED: BISACODYL 10 MG SUPP.RECT RC PRN (04:09)
[2021-11-30 08:14] LABS: BASO % 0.3 % (0-2.0); EOS % 0.4 % (0-4.5); HEMATOCRIT 29.1 % (32.4-45.2); HEMOGLOBIN 10.3 GM/dL (10.7-15.3); LYMPH % 26.8 % (8-40); MCH 31.2 pg (25.7-33.7); MCHC 35.5 g/dl (32.0-36.0); MEAN PLT VOLUME 8.3 fl (7.5-11.1); MONO % 4.9 % (3.8-10.2); NEUT % 67.6 % (42.8-82.8); PLATELET COUNT 219 10^3/uL (134-434); RBC 3.31 M/mm3 (3.60-5.2); RDW 16.2 % (11.6-15.6); WHITE BLOOD COUNT 11.1 K/mm3 (4.0-10.0)
[2021-11-30] MEDS: ACETAMINOPHEN 1000 MG/100 ML BAG IVPB PRN (08:22)
[2021-11-30] MEDS: ENOXAPARIN NA (PORCINE) 40 MG/0.4 ML DISP.SYRIN SQ SCH (10:29)
[2021-11-30] MEDS: oxyCODONE HCL 5 MG TABLET PO PRN (20:18)
[2021-11-30] MEDS: ACETAMINOPHEN 325 MG TABLET (FP) PO PRN (20:19)
[2021-12-01] MEDS: OXYTOCIN 20 UNITS in 0.9% NS 20 UNIT/1,000 ML INFUS.BAG IV SCH (06:02)
[2021-12-01] MEDS: ACETAMINOPHEN 325 MG TABLET (FP) PO PRN ×3 (06:03→23:15)
[2021-12-01] MEDS: SIMETHICONE 80 MG TAB.CHEW (FP) PO PRN ×3 (06:03→23:15)
[2021-12-01] MEDS: ELECTROLYTE-148 SOLN 1,000 ML IV SCH (06:06)
[2021-12-01] MEDS: ENOXAPARIN NA (PORCINE) 40 MG/0.4 ML DISP.SYRIN SQ SCH (09:16)
[2021-12-01] MEDS: oxyCODONE HCL 5 MG TABLET PO PRN (23:17)
[2021-12-02 06:42] LABS: BASO % 0.4 % (0-2.0); EOS % 1.6 % (0-4.5); HEMATOCRIT 30.1 % (32.4-45.2); HEMOGLOBIN 10.5 GM/dL (10.7-15.3); LYMPH % 39.3 % (8-40); MCH 30.8 pg (25.7-33.7); MCHC 34.8 g/dl (32.0-36.0); MEAN CELL VOLUME 88.4 fl (80-96); MEAN PLT VOLUME 8.1 fl (7.5-11.1); MONO % 4.3 % (3.8-10.2); NEUT % 54.4 % (42.8-82.8); PLATELET COUNT 229 10^3/uL (134-434); RDW 16.3 % (11.6-15.6); WHITE BLOOD COUNT 9.3 K/mm3 (4.0-10.0)
[2021-12-02 08:30] VITALS: BP 105/63; PULSE 83; RESP 20; TEMP 97.9
[2021-12-02] MEDS: ENOXAPARIN NA (PORCINE) 40 MG/0.4 ML DISP.SYRIN SQ SCH (09:26)
[2021-12-02] MEDS: SIMETHICONE 80 MG TAB.CHEW (FP) PO PRN (09:32)
[2021-12-02] MEDS: ACETAMINOPHEN 325 MG TABLET (FP) PO PRN (09:32)
== END 2021-12-02 12:50 | disposition home or self-care (01) | DRG 788 ==
LOC: JLDR 01:50 → J3W 08:15
PROVIDERS: ADMIT Obstetrics & Gynecology; ATTEND Obstetrics & Gynecology
PROC: 10D00Z1 Extraction of Products of Conception, Low, Open Approach (ICD-10-PCS; principal; 2021-11-29)
DX: O42.013 Preterm premature rupture of membranes, onset of labor within 24 hours of rupture, third trimester (principal); O34.211 Maternal care for low transverse scar from previous cesarean delivery; O99.284 Endocrine, nutritional and metabolic diseases complicating childbirth; E28.2 Polycystic ovarian syndrome; Z3A.38 38 weeks gestation of pregnancy; Z37.0 Single live birth
CPT/HCPCS: 36415; 36600; 80048; 82803; 85025; 85610; 85730; 86780; 86850; 86900; 86901; 88307-TC; C9803-CS; U0003; U0005